=== PATIENT | female | born 1950 | race Caucasian/White ===

== ENCOUNTER 2019-06-27 08:40 | Observation (INO) | payer OTHER ==
[~2019-06-27] VITALS: Ht 157.5 cm; Wt 76.0 kg
[2019-06-27 08:50] VITALS: Ht 157.5 cm; Wt 76.0 kg
[2019-06-27 09:39] LABS: BASOPHIL % 0.5 % (0-2); PLATELET COUNT 273 x10^3mcL (130-400)
[2019-06-27 10:16] LABS: CALCIUM 8.9 mg/dL (8.5-10.1); CARBON DIOXIDE 26.2 mmol/L (21-32); CHLORIDE SERUM 107 mmol/L (98-107); CREATININE SERUM 0.5 mg/dL (0.6-1.0); GFR1 > 60 mL/min; GLUCOSE SERUM 106 mg/dL (74-106); POTASSIUM SERUM 4.1 mmol/L (3.5-5.1); SODIUM SERUM 141 mmol/L (136-145)
[2019-06-27 10:20] LABS: ALT/SGPT 32 U/L (14-59); AST/SGOT 21 U/L (15-37)
[2019-06-27 10:36] LABS: ALKALINE PHOSPHATASE 139 U/L (46-116); BILIRUBIN TOTAL 0.31 mg/dL (0.20-1.00); TOTAL PROTEIN, SERUM 7.5 g/dL (6.4-8.2)
[2019-06-27 10:39] LABS: ALBUMIN 3.3 g/dL (3.4-5.0)
[2019-06-27] MEDS ORDERED: COZAAR25 M1 PO (12:55)
[2019-06-27 16:24] VITALS: BP 144/78
[2019-06-27 17:47] VITALS: BP 141/79
[2019-06-27 20:20] VITALS: BP 139/64
[2019-06-28 05:25] VITALS: BP 137/69
[2019-06-28 07:02] LABS: BASOPHIL % 0.6 % (0-2); PLATELET COUNT 252 x10^3mcL (130-400); RED CELL DISTRIBUTION WIDTH 14.2 % (11.5-14.5)
[2019-06-28 07:16] LABS: ALKALINE PHOSPHATASE 128 U/L (46-116); ALT/SGPT 31 U/L (14-59); AST/SGOT 16 U/L (15-37); BILIRUBIN TOTAL 0.3 mg/dL (0.20-1.00); CALCIUM 8.5 mg/dL (8.5-10.1); CARBON DIOXIDE 28.3 mmol/L (21-32); CHLORIDE SERUM 110 mmol/L (98-107); CREATININE SERUM 0.6 mg/dL (0.6-1.0); GFR1 > 60 mL/min; GLUCOSE SERUM 108 mg/dL (74-106); MAGNESIUM 2.2 mg/dL (1.8-2.4); POTASSIUM SERUM 4.1 mmol/L (3.5-5.1); SODIUM SERUM 144 mmol/L (136-145); TOTAL PROTEIN, SERUM 6.8 g/dL (6.4-8.2)
[2019-06-28 07:21] LABS: ALBUMIN 2.9 g/dL (3.4-5.0)
[2019-06-28 07:47] VITALS: BP 125/56
[2019-06-28 11:39] VITALS: BP 147/67
== END 2019-06-28 14:01 | disposition home or self-care (01) ==
LOC: ED 08:40 → DU 15:18
PROVIDERS: Emergency Medicine; ADMIT Internal Medicine Pulmonary Disease
DX: R07.89 Other chest pain (principal); I16.0 Hypertensive urgency; I10 Essential (primary) hypertension
CPT/HCPCS: 83880; 84439; G0378; J1644

== ENCOUNTER 2020-07-09 12:11 | Emergency (ER) | payer OTHER ==
[~2020-07-09] VITALS: Ht 157.5 cm; Wt 72.1 kg
[~2020-07-09 12:11] MED LIST: COZAAR25 M1 PO
[2020-07-09 12:16] VITALS: Ht 157.5 cm; Wt 72.1 kg
[2020-07-09 13:00] LABS: BASOPHIL % 0.7 % (0.2-1.3); PLATELET COUNT 252 x10^3mcL (179-408); RED CELL DISTRIBUTION WIDTH 14.3 % (12.3-17.7)
[2020-07-09 13:07] LABS: CARBON DIOXIDE 26.9 mmol/L (21-32); CHLORIDE SERUM 105 mmol/L (98-107); CREATININE SERUM 0.6 mg/dL (0.6-1.0); GLUCOSE SERUM 94 mg/dL (74-106); POTASSIUM SERUM 3.7 mmol/L (3.5-5.1); SODIUM SERUM 141 mmol/L (136-145)
[2020-07-09 13:12] LABS: ALKALINE PHOSPHATASE 128 U/L (46-116); ALT/SGPT 29 U/L (14-59); AST/SGOT 23 U/L (15-37); BILIRUBIN TOTAL 0.3 mg/dL (0.20-1.00); LIPASE 103 IU/L (73-393); TOTAL PROTEIN, SERUM 7.7 g/dL (6.4-8.2)
[2020-07-09 13:14] LABS: ALBUMIN 3.2 g/dL (3.4-5.0)
[2020-07-09 15:44] VITALS: BP 154/75
== END 2020-07-09 15:44 | disposition home or self-care (01) ==
LOC: ED 12:11
PROVIDERS: Emergency Medicine
DX: R07.89 Other chest pain (principal); I10 Essential (primary) hypertension; Z88.2 Allergy status to sulfonamides; Z88.1 Allergy status to other antibiotic agents; Z90.710 Acquired absence of both cervix and uterus; Z90.49 Acquired absence of other specified parts of digestive tract; Z98.890 Other specified postprocedural states
CPT/HCPCS: 83880; J1885